=== PATIENT | female | born 1950 | race African-American/Black ===

== ENCOUNTER 2021-02-23 16:53 | Emergency (ER) | payer MEDICARE ==
[~2021-02-23] VITALS: Ht 162.6 cm; Wt 102.3 kg
[2021-02-23 17:05] VITALS: TEMP 102
[2021-02-23 18:02] LABS: HEMATOCRIT 42.4 % (37.0-47.0); HEMOGLOBIN 13.8 g/dl (12.5-16.0); MEAN CELL VOLUME 82 fl (80.0-100.0); MEAN CORPUSCULAR HEMOGLOBIN 27 pg (27-31); MEAN CORPUSCULAR HGB CONC 33 g/dl (33.0-37.0); MEAN PLATELET VOLUME 10.7 fl (7.4-10.4); PLATELET COUNT 180 K/mm3 (130-400); REDCELL DISTRIBUTION WIDTH-CV 13.6 % (11.5-14.5)
[2021-02-23 18:19] LABS: BAND 3 % (0-10); LYMPHOCYTE 21 % (20.0-51.0); NEUTROPHILS 67 % (42.0-75.2); PLATELET ESTIMATE NORMAL (NORMAL)
[2021-02-23 18:21] LABS: ALBUMIN 3.7 gm/dL (3.4-4.8); BILIRUBIN,TOTAL 0.6 mg/dL (0.2-1.2); C-REACTIVE PROTEIN 5.32 mg/dL (0.00-0.50); CALCIUM 8.9 mg/dL (8.4-10.2); CREATININE, serum 1.27 mg/dL (0.57-1.11); TOTAL PROTEIN 7.9 gm/dL (6.2-8.1)
[2021-02-23 18:27] LABS: TROPONIN-I 0.013 ng/mL (0.00-0.033)
[2021-02-23 19:52] VITALS: BP 117/61; PULSE 69
== END 2021-02-23 19:52 | disposition home or self-care (01) ==
LOC: COL.ER 16:53
PROVIDERS: Nurse Practitioner
DX: U07.1 COVID-19 (principal); E11.9 Type 2 diabetes mellitus without complications; I10 Essential (primary) hypertension; Z73.0 Burn-out
CPT/HCPCS: J7030

== ENCOUNTER 2021-02-25 09:49 | Inpatient (IN) | payer MEDICARE ==
[~2021-02-25] VITALS: Ht 162.6 cm; Wt 102.3 kg
[2021-02-25 10:50] LABS: BASO % 0.2 % (0.0-2.0); GRAN # 10.1 K/mm3 (1.4-6.5); GRAN % 85.6 % (42.2-75.2); HEMATOCRIT 41.1 % (37.0-47.0); HEMOGLOBIN 13.5 g/dl (12.5-16.0); LYMPH # 1.3 K/mm3 (1.2-3.4); LYMPH % 10.7 % (20.0-51.0); MEAN CELL VOLUME 81 fl (80.0-100.0); MEAN CORPUSCULAR HEMOGLOBIN 27 pg (27-31); MEAN CORPUSCULAR HGB CONC 33 g/dl (33.0-37.0); MEAN PLATELET VOLUME 10.8 fl (7.4-10.4); MONO # 0.4 K/mm3 (0.1-0.6); MONO % 3.1 % (1.7-9.3); PLATELET COUNT 229 K/mm3 (130-400); RED BLOOD COUNT 5.08 M/mm3 (4.10-5.30); REDCELL DISTRIBUTION WIDTH-CV 13.7 % (11.5-14.5)
[2021-02-25 11:04] LABS: ALBUMIN 3.1 gm/dL (3.4-4.8); BILIRUBIN,TOTAL 0.7 mg/dL (0.2-1.2); CALCIUM 8.9 mg/dL (8.4-10.2); CREATININE, serum 1.1 mg/dL (0.57-1.11); POTASSIUM 3.8 mmol/L (3.5-4.5); TOTAL PROTEIN 7.9 gm/dL (6.2-8.1)
[2021-02-25 13:10] VITALS: BP 124/37; PULSE 91; TEMP 98.7
[2021-02-25 16:14] VITALS: BP 155/82; PULSE 88; TEMP 98.6
[2021-02-25] MEDS ORDERED: CRESTOR5 MG PO (16:33)
[2021-02-25] MEDS ORDERED: THE MEDICINE S200 M2 PO (16:34)
[2021-02-25] MEDS ORDERED: GLUCOPHAGE500 MG/TAB PO (16:35)
[2021-02-25] MEDS ORDERED: BENICAR 20MG TA20 MG PO (16:35)
[2021-02-25] MEDS ORDERED: D3-5050000 IU PO (16:36)
[2021-02-25 19:00] VITALS: BP 152/83; PULSE 78; TEMP 98
[2021-02-25 19:09] LABS: COLLECTION METHOD CLEAN CATCH
[2021-02-25 19:16] LABS: MUCOUS Present (NOT PRESENT); URINE BACTERIA None Seen /hpf (NONE SEEN); URINE RBC 0-2 /hpf (0-2)
[2021-02-25 19:17] LABS: PH 5 (5-8); URINE APPEARANCE Clear (CLEAR/HAZY); URINE BILIRUBIN Negative (NEGATIVE); URINE BLOOD Negative (NEGATIVE); URINE COLOR Yellow (YELLOW); URINE GLUCOSE Negative (NEGATIVE); URINE KETONE 1+ (NEGATIVE); URINE LEUKOCYTE ESTERASE Negative (NEGATIVE); URINE NITRATE Negative (NEGATIVE); URINE PROTEIN(semi-quant) 1+ (NEGATIVE); URINE UROBILINOGEN Negative (NEGATIVE)
[2021-02-25 19:48] VITALS: BP 152/83; PULSE 78; TEMP 98
--- NOTE | 2021-02-25 19:54 | NUR ---
PT ARRIVED TO MEDICAL FLOOR AT APPROXIMATELY 1215, 02 2L NC, RR 24, PT REPORTS LOOSE STOOLS, URINE SAME COLLECTED. NO SKIN ISSUES. PT INSTRUCTED TO USE CALL LIGHT TO BED SIDE COMMODE. PT VERBALIZES UNDERSTANDING. PT ORIENTED TO FLOOR AND HOSPITAL POLICY. POC DISCUSSED. ASSESMENT COMPLETE. MED REC COMPLETE. ALL NEEDS MET AT THIS TIME. ALL ANSWERS QUESTIONS ANSWERED. CALL LIGHT WTIHIN REACH.
--- NOTE | 2021-02-25 19:56 | NUR ---
THIS NURSE ATTEMPTED TO CALL ID CONSULT. NO ANSWER. ONCOMING SHIFT NOTIFIED.
--- NOTE | 2021-02-25 22:58 | NUR ---
PT ASSESSMENT COMPLETED. PT CURRENTLY ON 5 L NC. PT IS PLEASANT AND COOPERATIVE. PT COMPLAINS OF NASAL CONGESTION. NO OTHER NEEDS AT THIS TIME.
[2021-02-25 23:31] VITALS: BP 149/69; PULSE 86; TEMP 98.7
[2021-02-26] VITALS (7 sets, daily range): BP systolic 143–186; BP diastolic 70–92; PULSE 73–91; TEMP 98–98.5
--- NOTE | 2021-02-26 06:23 | NUR ---
PT HAD AN UNEVENTFUL NIGHT. PT IS ON 5 L O2. DENIES PAIN, PLEASANT AND COOPERATIVE. PT TOOK ALL MEDICATIONS PRESCRIBED. FLUIDS INFUSING. CALL LIGHT IN REACH, USES BEDSIDE COMMODE, DYSPNEA UPON EXERTION.
[2021-02-26 07:08] LABS: HEMATOCRIT 39.7 % (37.0-47.0); HEMOGLOBIN 13.2 g/dl (12.5-16.0); MEAN CELL VOLUME 80 fl (80.0-100.0); MEAN CORPUSCULAR HEMOGLOBIN 27 pg (27-31); MEAN CORPUSCULAR HGB CONC 33 g/dl (33.0-37.0); MEAN PLATELET VOLUME 10.9 fl (7.4-10.4); PLATELET COUNT 261 K/mm3 (130-400); RED BLOOD COUNT 4.98 M/mm3 (4.10-5.30); REDCELL DISTRIBUTION WIDTH-CV 13.9 % (11.5-14.5)
[2021-02-26 07:26] LABS: CALCIUM 8.8 mg/dL (8.4-10.2); CREATININE, serum 0.91 mg/dL (0.57-1.11)
--- NOTE | 2021-02-26 08:27 | NUR ---
Patient laying in bed upon entering the room. Patient got up to the BSC with this RN assisting. Patient became SOB with exertion and was tachypneic. This RN checked O2 sats and the patient was only at 81% on 5L. Once patient was back in bed ad allowed time to recover, her saturations were still not increasing. O2 was increased to 7L via NC, still no results. This RN called RT and requested a HFNC. HFNC was placed w/ bubbler and patient is currently on 15L, and satting at 93%.
[2021-02-26 09:32] LABS: BAND 4 % (0-10); LYMPHOCYTE 16 % (20.0-51.0); NEUTROPHILS 75 % (42.0-75.2); PLATELET ESTIMATE NORMAL (NORMAL)
[2021-02-26 09:33] LABS: MICROCYTOSIS 1+
[2021-02-26 10:35] LABS: C-REACTIVE PROTEIN 11.91 mg/dL (0.00-0.50)
[2021-02-26 10:40] LABS: ALBUMIN 2.7 gm/dL (3.4-4.8); BILIRUBIN,DIRECT 0.2 mg/dL (0.0-0.5); BILIRUBIN,TOTAL 0.4 mg/dL (0.2-1.2)
--- NOTE | 2021-02-26 18:41 | NUR ---
Patient has done okay today. Remains tachypneic around 26. Patient uses BSC w/ SBA.
[2021-02-27] VITALS (9 sets, daily range): BP systolic 118–177; BP diastolic 56–96; PULSE 66–127; TEMP 97.4–98.2
--- NOTE | 2021-02-27 03:07 | NUR ---
AT 0239 THIS NURSE WAS CONTACTED BY NIKI JORGENSEN THAT PT WAS SHAKING IN BED, UPON ARRIVAL WOOD DIE MAKER WAS TAKING PT'S VITALS. PT FOUND TO BE HYPOXIC WITH SATS AT 87 PERCENT, HYPERTENSIVE, TACHYCARDIC, TACHPNEIC,AFEBRILE. PT A/OX4, WITH APPARENT COGNITIVE DELAYS. PT DENIES DIZZINESS, NAUSEA AND REPORTS WEAKNESS, MILD PARETHESIA TO LEFT HAND. PT STATES SHE FEELS WEIRD. NO FACIAL ASSYMETRY NOTED, GRASPS STRONG AND EQUAL. BS 161, PT CONTINUES TO HAVE MILD SHAKING EPISODES. HOSPITALIST CONDUCTED ASSESMENT. CHEST XRAY ORDERED, CTH ORDERED. CHEST XRAY COMPLETED AT 0305. THIS NURSE CALLED CT TO PREPARE/ARRANGE TRANSPORTATION. RT BRINGING AIRBVO AT THIS TIME AND WILL CONDUCT ABG. AFTER ABG COLLECTION THIS NURSE AND AIDE WILL TRANSPORT PT DOWN TO CT. THIS NURSE IS CURRENTLY IN THE ROOM WITH PT THIS TIME AT 0314.
[2021-02-27 03:56] LABS: ARTERIAL BLD GAS O2 SATURATION 91.9 % (92-100); ARTERIAL BLD GAS TCO2 CT 20.6; ARTERIAL BLOOD GAS BASE EXCESS -2.3 (-2-2); ARTERIAL BLOOD GAS HCO3 19.7 meq/L (22-26); ARTERIAL BLOOD GAS PO2 59.8 mmHg (80-100); ARTERIAL BLOOD GAS pH 7.48 (7.35-7.45)
--- NOTE | 2021-02-27 04:49 | NUR ---
PT OFF MEDICAL FLOOR AT [address] RETURNED AT 0440.
--- NOTE | 2021-02-27 06:17 | NUR ---
PT PLACED ON AIRVO AT ABOUT 0500 40L FIO2 90 PERCENT 02 SAT 94 PERCENT DUE TO METABOLIC ACIDOSIS. PT INSTRUCTED OF 02 NEEDS. PT VERBALIZES UNDERSTANDING.
--- NOTE | 2021-02-27 06:57 | NUR ---
PT REPORTS EPISTAXIS/ LITTLE DRAINAGE/ NASAL SPRAY ORDERED. PENDING PHARMACY DROP OFF. PT AWARE.
[2021-02-27 07:33] LABS: BASO % 0.1 % (0.0-2.0); GRAN # 6.4 K/mm3 (1.4-6.5); GRAN % 76.6 % (42.2-75.2); HEMOGLOBIN 12.8 g/dl (12.5-16.0); LYMPH # 1.2 K/mm3 (1.2-3.4); LYMPH % 13.9 % (20.0-51.0); MEAN CELL VOLUME 79 fl (80.0-100.0); MEAN CORPUSCULAR HEMOGLOBIN 27 pg (27-31); MEAN CORPUSCULAR HGB CONC 34 g/dl (33.0-37.0); MEAN PLATELET VOLUME 10.2 fl (7.4-10.4); MONO # 0.7 K/mm3 (0.1-0.6); MONO % 8.7 % (1.7-9.3); PLATELET COUNT 338 K/mm3 (130-400); RED BLOOD COUNT 4.82 M/mm3 (4.10-5.30)
--- NOTE | 2021-02-27 07:48 | NUR ---
REPRT RECEIVED FROM EMIGDIO GOVERNMENT INSTRUCTOR NIKI. PT JUDE RESTING IN BED ON AIRVO AT70L 90%FIO2
[2021-02-27 07:56] LABS: CALCIUM 9.2 mg/dL (8.4-10.2); CREATININE, serum 0.98 mg/dL (0.57-1.11)
--- NOTE | 2021-02-27 08:36 | NUR ---
CALLED BY TELE PT HR 160'S DR US CALLED AND NOTIFY ORERS RECEIVED FOR METOPROL 1OMG IV ONCE AND EGK
--- NOTE | 2021-02-27 16:34 | NUR ---
Software Asset Management Analyst was contacted by patient's son, Dilshad Clemons (ph#[phone]) who requested an update from Hospitalist. SW also completed intake with patient's son while he was on the phone. Patient lives alone in [place] and moved here about 30 days ago. Patient does not have primary care established yet. Patient does not normally use any DME and is independent with ADLS. Dilshad advised he is patient's only child and DPOA-HC although he is not sure where patient's copy is located. Dilshad advised patient will likely plan to return home at discharge and has relatives in the area that are supportive. Patient's sister, Fang and niece, Becki Sahni live in the same complex as patient. OTTO contacted Hospitalist to request he contact patient's son with update. OTTO also requested PT/OT orders. Discharge Plan: Home pending PT/OT recommendations.
--- NOTE | 2021-02-27 23:25 | NUR ---
PT IS LAYING IN BED WITH AIRVO ON, PT ASSISTED TO BEDSIDE COMMODE. WHEN RETURNED TO BED, PT OXYGEN DROPPED TO 89%, BUT RECOVERED BACK TO 93% WITHIN MINUTES. PT DENIES PAIN. NO OTHER NEEDS AT THIS TIME.
[2021-02-28] VITALS: BP 146/70; PULSE 65; TEMP 97.7
[2021-02-28 05:15] VITALS: BP 143/64; PULSE 62; TEMP 98
[2021-02-28 06:48] LABS: BASO % 0.1 % (0.0-2.0); GRAN # 5.9 K/mm3 (1.4-6.5); GRAN % 75.1 % (42.2-75.2); HEMOGLOBIN 12.2 g/dl (12.5-16.0); LYMPH # 1.1 K/mm3 (1.2-3.4); LYMPH % 14.4 % (20.0-51.0); MEAN CELL VOLUME 80 fl (80.0-100.0); MEAN CORPUSCULAR HEMOGLOBIN 27 pg (27-31); MEAN CORPUSCULAR HGB CONC 33 g/dl (33.0-37.0); MEAN PLATELET VOLUME 10.6 fl (7.4-10.4); MONO # 0.8 K/mm3 (0.1-0.6); MONO % 9.6 % (1.7-9.3); PLATELET COUNT 336 K/mm3 (130-400); RED BLOOD COUNT 4.58 M/mm3 (4.10-5.30)
[2021-02-28 06:50] LABS: HEMATOCRIT 36.5 % (37.0-47.0)
[2021-02-28 07:02] LABS: CALCIUM 8.7 mg/dL (8.4-10.2); CREATININE, serum 0.93 mg/dL (0.57-1.11); POTASSIUM 4.1 mmol/L (3.5-4.5)
--- NOTE | 2021-02-28 07:31 | NUR ---
REPORT RECEIEVED FROM CATHY RN, PT RESTING IN BED REMAIN ON AIRVO AT 45L 85%FIO2. PT DENIES ANY NEEDS.
[2021-02-28 07:49] VITALS: BP 148/75; PULSE 64; TEMP 97.5
[2021-02-28 12:04] VITALS: BP 171/71; PULSE 64; TEMP 97.5
[2021-02-28 16:16] VITALS: BP 152/69; PULSE 66; TEMP 97.7
--- NOTE | 2021-02-28 18:54 | NUR ---
PT A/0X4 PICC LINE PLACED THIS AM REMAIN ON 12L HF AT THIS TIME. GET SOSB WITH ACTIVITY
[2021-02-28 20:19] VITALS: BP 166/76; PULSE 66; TEMP 97.3
[2021-03-01] VITALS (7 sets, daily range): BP systolic 138–171; BP diastolic 62–91; PULSE 59–72; TEMP 97.4–97.8
--- NOTE | 2021-03-01 01:46 | NUR ---
PT IS PLEASANT, ALERT AND ORIENTATED. NO COMPLAINTS. ABLE TO GET TO BEDSIDE COMMODE WITH NO DIFFICULTIES. PT DENIES PAIN, STATES MOVING IS GETTING EASIER WITHOUT LOSING BREATH MUCH. PT TOOK ALL MEDICATIONS PRESCRIBED. PICC SITE IS C/D/I.
--- NOTE | 2021-03-01 06:17 | NUR ---
PT HAD AN UNEVENTFUL NIGHT. PT SLEPT MOST OF NIGHT, TOOK ALL MEDICATIONS PRESCRIBED. PT AMBULATED TO BEDSIDE COMMODE WITH LITTLE DIFFICULTY, HAD SMALL BM THIS AM. PT REMAINS ON 15 L HIGH FLOW.
[2021-03-01 06:49] LABS: HEMATOCRIT 40.4 % (37.0-47.0); HEMOGLOBIN 13.2 g/dl (12.5-16.0); MEAN CELL VOLUME 82 fl (80.0-100.0); MEAN CORPUSCULAR HEMOGLOBIN 27 pg (27-31); MEAN CORPUSCULAR HGB CONC 33 g/dl (33.0-37.0); PLATELET COUNT 404 K/mm3 (130-400); RED BLOOD COUNT 4.95 M/mm3 (4.10-5.30); REDCELL DISTRIBUTION WIDTH-CV 13.8 % (11.5-14.5)
[2021-03-01 06:58] LABS: CALCIUM 8.9 mg/dL (8.4-10.2); CREATININE, serum 1.04 mg/dL (0.57-1.11); POTASSIUM 4.2 mmol/L (3.5-4.5)
[2021-03-01 07:40] LABS: BAND 1 % (0-10); LYMPHOCYTE 24 % (20.0-51.0); NEUTROPHILS 66 % (42.0-75.2); PLATELET ESTIMATE NORMAL (NORMAL)
--- NOTE | 2021-03-01 09:20 | NUR ---
Assessment complete. Pt sitting up in bed eating breakfast. Denies pain. Reports shortness of breath on exertion. O2 at 12L/high flow nasal cannula. Denies needs. Call light within reach.
--- NOTE | 2021-03-01 22:15 | NUR ---
DROPLET ISOLATION CONTINUES. PT HAVING NO RESP DISTRESS. RESTING IN BED WATCHING TV.
--- NOTE | 2021-03-02 05:09 | NUR ---
ATTEMPTED TO OBTAIN BLOOD DRAW FROM PICC. UNABLE TO FROM EITHER LUMENS. BOTH LUMENS FLUSH WELL.
[2021-03-02 05:14] VITALS: BP 154/68; PULSE 61; TEMP 97.4
[2021-03-02 06:25] LABS: CALCIUM 8.3 mg/dL (8.4-10.2); CREATININE, serum 0.83 mg/dL (0.57-1.11); POTASSIUM 4.4 mmol/L (3.5-4.5)
[2021-03-02 07:13] LABS: HEMATOCRIT 37.8 % (37.0-47.0); HEMOGLOBIN 12.3 g/dl (12.5-16.0); MEAN CELL VOLUME 81 fl (80.0-100.0); MEAN CORPUSCULAR HEMOGLOBIN 26 pg (27-31); MEAN CORPUSCULAR HGB CONC 33 g/dl (33.0-37.0); MEAN PLATELET VOLUME 10.8 fl (7.4-10.4); PLATELET COUNT 370 K/mm3 (130-400); RED BLOOD COUNT 4.67 M/mm3 (4.10-5.30); REDCELL DISTRIBUTION WIDTH-CV 13.5 % (11.5-14.5)
[2021-03-02 08:07] VITALS: BP 141/66; PULSE 63; TEMP 97.4
[2021-03-02 08:17] LABS: BAND 1 % (0-10); LYMPHOCYTE 18 % (20.0-51.0); METAMYELOCYTE 4 % (0-0); NEUTROPHILS 72 % (42.0-75.2); PLATELET ESTIMATE NORMAL (NORMAL)
--- NOTE | 2021-03-02 11:43 | NUR ---
Health Care Coach spoke with patient's, son Dilshad who advised he would like an update from Hospitalist if possible today. SW left a message for Hospitalist with Dilshad's phone number.
[2021-03-02 12:37] VITALS: BP 132/63; PULSE 61; TEMP 97.4
[2021-03-02 16:29] VITALS: BP 132/60; PULSE 69; TEMP 97.5
--- NOTE | 2021-03-02 17:38 | NUR ---
RESUMED CARE FROM [facility], DELIVERED DINNER AND GAVE INSULIN
[2021-03-02 20:18] VITALS: BP 144/59; PULSE 62; TEMP 98.1
--- NOTE | 2021-03-02 21:41 | NUR ---
PT IS LAYING IN BED, ALERT AND ORIENTATED AND PLEASANT. PT STATED RT JUST REDUCED OXGEN HIGH FLOW DOWN TO 8L. PT TOLERATING WELL. ASSESSMENT COMPLETED. PT DENIED ANY N/V. STATES HAD SOME DIARRHEA TODAY, BUT HAS SLOWED DOWN. PT STATES SHE ONLY GETS SOB DURING EXERTION.PT ALSO STATES SWELLING AROUND ANKLES HAPPENS WHEN SHE DOES NOT AMBULATE OFTEN, AND CANNOT AMBULATE OFTEN DUE TO SOB. PT DENIES ANY CHEST PAIN OR PALPITATIONS. HEART RATE IS NORMAL SINUS. PT STATES HER APPETITE IS INCREASING, WOULD LIKE SOME CRACKERS AND DECAF COFFEE. CALL LIGHT IN REACH, NO OTHER NEEDS AT THIS TIME.
[2021-03-02 23:20] VITALS: BP 144/67; PULSE 57; TEMP 97.9
[2021-03-03 04:49] VITALS: BP 140/68; PULSE 57; TEMP 97.4
--- NOTE | 2021-03-03 05:59 | NUR ---
PT HAD AN UNEVENTFUL NIGHT. PT IS CURRENTLY ON 7L HIGH FLOW NC. PT DENIES SOB, PAIN OR PALPITATIONS. PT TOOK ALL MEDICATIONS PRESCRIBED. CALL LIGHT IN REACH.
[2021-03-03 08:21] VITALS: BP 144/69; PULSE 66; TEMP 97.5
--- NOTE | 2021-03-03 09:23 | NUR ---
Patient sitting up in bed upon entering the room. Patient is doing well and does not have any complaints. Patient is a SBA in the room, d/t the potential for her O2 sats to drop. carpet sewing machine operator RN informed this RN that the patient's purple port on her PICC had no blood return and was not flushing well. This RN attempted to flush and get blood return, and was unsuccessful, even w/ positional changes. Dr. Rodriguez notified and Cathflo has been ordered.
[2021-03-03 12:20] VITALS: BP 107/54; PULSE 67; TEMP 97.6
[2021-03-03 16:31] VITALS: BP 116/90; PULSE 71; TEMP 97.8
--- NOTE | 2021-03-03 18:08 | NUR ---
Patient has done well today and has not had any complaints. Patient did refuse her cough medicine, as she has not had much of a cough and would rather wait until her night time dose.
[2021-03-03 19:16] VITALS: BP 123/71; PULSE 62; TEMP 97.7
--- NOTE | 2021-03-03 21:20 | NUR ---
Initial shift assessment done- pleasant, alert/oriented, VSS, on o2 at 6L/high flow,, Has PICC line to LU, Tele on, states feeling better, states she walked to the bathroom on her own today- instructed to call during the night and we will assist as needed.
[2021-03-04] VITALS (7 sets, daily range): BP systolic 102–122; BP diastolic 48–66; PULSE 14–69; TEMP 97.3–97.9
--- NOTE | 2021-03-04 06:12 | NUR ---
Quiet night- VSS, 95% o2 sats on 6.5L/high flow, awake, in good spirits this morning- feeling better.
--- NOTE | 2021-03-04 10:52 | NUR ---
Patient is doing well this morning and does not have any complaints. Patient has been independent in the room.
--- NOTE | 2021-03-04 18:08 | NUR ---
Patient has done well today, O2 decreased from 7L to 5L. Patient continues to get up independently in the room. Call light is w/in reach.
--- NOTE | 2021-03-04 20:50 | NUR ---
Initial shift assessment done- was just up to bathroom, states having some SOB with exertion, o2 at 5L/nc high flow- steady on feet, PICC to right upper arm, Tele on, Denies pain, blood sugar was 389- insulin given per sliding scale.
[2021-03-05 03:35] VITALS: BP 106/46; PULSE 55; TEMP 97.5
--- NOTE | 2021-03-05 05:41 | NUR ---
Quiet night,VSS, o2 at 5L/high flow. o2 sats 95-97%
[2021-03-05 08:43] VITALS: BP 105/60; PULSE 66; TEMP 97.6
--- NOTE | 2021-03-05 08:51 | NUR ---
PT LAYING IN BED. ASSESSMENT COMPLETED. NO COMPLAINT OF PAIN OR DISCOMFORT. WILL SHOWER THE PATIENT TODAY. DENIES ANY OTHER NEEDS AT THIS TIME.
[2021-03-05 11:34] VITALS: BP 126/65; PULSE 71; TEMP 97.5
[2021-03-05 16:42] VITALS: BP 106/53; BP 106/853; PULSE 68; TEMP 98.6
[2021-03-05 19:52] VITALS: BP 104/53; PULSE 76; TEMP 97.7
--- NOTE | 2021-03-05 20:00 | NUR ---
PT SITTING IN RECLINER CHAIR AT BEDSIDE. IS ALERT AND ORIENTED X4. HAS O2 @2L/NC. RT PICC FLUSHES WELL. INDEPENDENT IN ROOM.
--- NOTE | 2021-03-05 21:45 | NUR ---
PT REPORTS DIARRHEA AT THIS TIME. DENIES NEED FOR MED FOR THIS. HS MEDS GIVEN AT THIS TIME.
[2021-03-06 00:16] VITALS: BP 107/57; PULSE 61; TEMP 98.5
[2021-03-06 04:03] VITALS: BP 108/54; PULSE 56; TEMP 97.4
--- NOTE | 2021-03-06 05:30 | NUR ---
PT ON ROOM AIR, DENIES NEEDS. REFUSES PROTONIX.
[2021-03-06 07:12] LABS: HEMATOCRIT 38.2 % (37.0-47.0); HEMOGLOBIN 12.3 g/dl (12.5-16.0); MEAN CELL VOLUME 83 fl (80.0-100.0); MEAN CORPUSCULAR HEMOGLOBIN 27 pg (27-31); MEAN CORPUSCULAR HGB CONC 32 g/dl (33.0-37.0); MEAN PLATELET VOLUME 10.9 fl (7.4-10.4); PLATELET COUNT 343 K/mm3 (130-400); RED BLOOD COUNT 4.59 M/mm3 (4.10-5.30); REDCELL DISTRIBUTION WIDTH-CV 14.1 % (11.5-14.5)
[2021-03-06 07:28] LABS: C-REACTIVE PROTEIN 0.19 mg/dL (0.00-0.50); CALCIUM 8.8 mg/dL (8.4-10.2); MAGNESIUM 2.3 mg/dL (1.6-2.6); POTASSIUM 4.2 mmol/L (3.5-4.5)
[2021-03-06 08:27] LABS: LYMPHOCYTE 23 % (20.0-51.0); MYELOCYTE 2 % (0-0); NEUTROPHILS 68 % (42.0-75.2)
[2021-03-06 08:28] LABS: PLATELET ESTIMATE NORMAL (NORMAL)
[2021-03-06 08:31] VITALS: BP 104/50; PULSE 66; TEMP 97.5
[2021-03-06] MEDS ORDERED: FLONASE NASAL S16 GM NS (08:46)
[2021-03-06] MEDS ORDERED: PROAIR HFA0.09 MG/AC IH (08:48)
[2021-03-06] MEDS ORDERED: OXYGEN NASAL.CANN (10:20)
--- NOTE | 2021-03-06 10:40 | NUR ---
An exercise oximetry was ordered. The patient qualified for 5 liters of oxygen with ambulation. The clinical team is ready to discharge the patient today. [facility] is out of oxygen and not taking any new orders. [facility]'s voicemail says that they are closed. OTTO contacted and faxed the patient's order to Barron at [facility]. Awaiting review and delivery. OTTO contacted and updated the patient's son, Dilshad, on the above. Dilshad is in agreement to the plan. He asks that we contact him, once the oxygen is delivered, so that he can notify his cousin. His cousin will be transporting the patient home today. OTTO read the IM form outloud to [employer] over the phone. Dilshad verbalized understanding and gave OTTO approval to sign the form on his behalf.
[2021-03-06 12:21] VITALS: BP 105/55; PULSE 66; TEMP 97.7
--- NOTE | 2021-03-06 14:56 | NUR ---
Barron, at [facility], contacted OTTO back. Barron reports that they are not contracted with the patient's insurance, [employer], and he informed OTTO that [facility] is. OTTO contacted the flight operations engineer line for [facility] and provided them with the patient's information. OTTO then received a phone call from Thelma at [facility]. Thelma reports that she will be up to the hospital soon to deliver the patient's equipment. She reports that the patient will have an out of pocket cost of around $30-40 a month. OTTO updated the patient's RN. OTTO contacted and updated the patient's son, Dilshad. No additional needs at this time.
--- NOTE | 2021-03-06 16:00 | NUR ---
PT WAS EDUCATED ON DISCHARGE INSTRUCTIONS AND O2 INSTRUCTIONS. PT WAS CLEAR ON THE INSTRUCTIONS WAS THE NIECE WHO PICKED HER UP. NO OTHER CONCERNS.
== END 2021-03-06 16:30 | disposition home or self-care (01) | DRG 177 ==
LOC: COL.ER 09:49 → MEDICAL 11:15
PROVIDERS: Family Medicine; Internal Medicine; Student in an Organized Health Care Education/Training Program; ADMIT Student in an Organized Health Care Education/Training Program
PROC: XW033E5 Introduction of Remdesivir Anti-infective into Peripheral Vein, Percutaneous Approach, New Technology Group 5 (ICD-10-PCS; principal; 2021-02-25)
PROC: 3E0DX3Z Introduction of Anti-inflammatory into Mouth and Pharynx, External Approach (ICD-10-PCS; 2021-02-25)
PROC: 5A09457 Assistance with Respiratory Ventilation, 24-96 Consecutive Hours, Continuous Positive Airway Pressure (ICD-10-PCS; 2021-02-28)
PROC: 02HV33Z Insertion of Infusion Device into Superior Vena Cava, Percutaneous Approach (ICD-10-PCS; 2021-02-28)
DX: U07.1 COVID-19 (principal); J96.01 Acute respiratory failure with hypoxia; J12.82 Pneumonia due to coronavirus disease 2019; I47.1 Supraventricular tachycardia; I10 Essential (primary) hypertension; E11.9 Type 2 diabetes mellitus without complications; J32.3 Chronic sphenoidal sinusitis; E78.5 Hyperlipidemia, unspecified; Z79.84 Long term (current) use of oral hypoglycemic drugs; Z85.3 Personal history of malignant neoplasm of breast; Z88.2 Allergy status to sulfonamides
CPT/HCPCS: 99223-AI; 99232-AI; 99233-AI; 99239; C1751; J0360; J0696; J1100; J1650; J1815; J2997; J7030; J7050; J8540; Q9967

== ENCOUNTER → 2022-04-03 | Outpatient (CLI) | payer MEDICARE ==
[~2022-04-03] MED LIST: BENICAR 20MG TA20 MG PO; CRESTOR5 MG PO; D3-5050000 IU PO; FLONASE NASAL S16 GM NS; GLUCOPHAGE500 MG/TAB PO; OXYGEN NASAL.CANN; PROAIR HFA0.09 MG/AC IH; THE MEDICINE S200 M2 PO
== END ==
LOC: COL.RAD 16:06
DX: M79.604 Pain in right leg (principal); M79.89 Other specified soft tissue disorders

== ENCOUNTER → 2023-02-08 | Outpatient (CLI) | payer MEDICARE | LOC: MC.RAD 09:02 | DX: Z12.31 Encounter for screening mammogram for malignant neoplasm of breast (principal) ==